=== PATIENT | female | born 2000 ===

== ENCOUNTER 2019-12-25 10:32 | Emergency (ER) | payer BC ==
[~2019-12-25] VITALS: Ht 160 cm; Wt 110.0 kg
[2019-12-25 10:43] VITALS: BP 106/63
[2019-12-25] MEDS ORDERED: FLUORESCEIN OPHTHALMIC 1 MG STRIP ONE (10:50)
[2019-12-25] MEDS ORDERED: PROPARACAINE OPHTH 0.5%, 15ML ONE (10:51)
--- NOTE | 2019-12-25 10:51 | NUR ---
PT PRESENTED TO ED D/T RIGHT EYE PAIN SINCE YESTERDAY. PT STATED WOKE UP AND NOTICED REDNESS AND SWELLING TO RIGHT EYE. DENIES TRAUMA. HX OF CONJUNCTIVITIS IN MIDDLE SCHOOL.
--- NOTE | 2019-12-25 11:23 | NUR ---
PT DC HOME IN A STABLE CONDITION. DC INSTRUCTIONS WERE DISCUSSED WITH PT. PT VERBALIZED UNDERSTANDING. NO FURTHER QUESTIONS OR CONCERNS EXPRESSED AT THAT TIME. PT AMBULATED WITH RN TO DC DESK. STEADY GAIT.
== END 2019-12-25 11:32 | disposition home or self-care (01) ==
LOC: ED 11:19
DX: H57.11 Ocular pain, right eye (principal)
CPT/HCPCS: 99283